=== PATIENT | female | born 1995 | race African-American/Black ===

== ENCOUNTER 2017-07-09 23:12 | Emergency (ER) | payer SELFPAY ==
[~2017-07-09] VITALS: Ht 170.2 cm; Wt 136.1 kg
--- OUTSIDE RECORDS SUMMARY | 2017-07-09 23:36 | External Medical Summary Rpt | CCD ---
Author Author [employer] Organization [employer] Address Unknown Phone Unavailable Purpose Continuity of Care Document - through 2016
--- OUTSIDE RECORDS SUMMARY | 2017-07-09 23:38 | External Medical Summary Rpt | CCD ---
Demographics Preferred Language Prydeinig Marital Status Unknown Catholic Affiliation Unknown Race Unknown Ethnic Group Unknown Author Author , JOSE L DOMINGO Address Unknown Phone jose Immunization Unable to retrieve immunization data due to connection failure with Immunization Registry. Please try again later.
--- OUTSIDE RECORDS SUMMARY | 2017-07-09 23:38 | External Medical Summary Rpt | CCD ---
Demographics Preferred Language Niuean Marital Status Unknown Taoism Affiliation Unknown Race Unknown Ethnic Group Unknown Author Author , JOSE L DOMINGO Address Unknown Phone jose Immunization Unable to retrieve immunization data due to connection failure with Immunization Registry. Please try again later.
--- NOTE | 2017-07-10 01:35 | Emergency Room Report ---
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 N Clinical Suspician of Infection? N Mental Status: 1 - Regular (Normal Baseline) Sepsis Risk:Low Sepsis Risk Have you (or family members/close friends) recently traveled outside the [place]? N If Yes, where/when: Have you had exposure to infectious disease within the past month? N TB? Other? Specify: Source patient, RN notes reviewed, family, old records Exam Limitations no limitations Comment pt with sob and cough with pleuritic pain Cardiac Chest Pain Chest pain indicative of cardiac No Timing/Duration this evening Severity moderate ALLERGIES Coded Allergies: NSAIDS (Non-Steroidal Anti-Inflamma (07/09/17) Sulfa (Sulfonamide Antibiotics) (07/09/17) codeine (07/09/17) latex (07/09/17) History Medical History General CAD? No Angina: No MD: No Hypertension? No Hyperlipidemia? No CHF? No DVT? No PE? No COPD? No Asthma? Yes Anemia? No GERD? No Gastric ulcers? Yes GI Bleed? Yes Hernia? No Thyroid Problems? No Hypothyroidism? No CVA? No Seizures? No Diabetes? No Renal Insuffiency? No End Stage Renal Disease? No UTI? Yes Stones? No BPH? No GB Disease: No Nephritic Syndrome? No Asplenia? No Hepatitis? No Sickle Cell Disease? No Arthritis? No Migraines? Yes Cataracts? No Glaucoma? No MRSA? No HIV? No TB? No Anxiety? Yes Depression? Yes Cancer? No More? 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 Respiratory see HPI, cough, shortness of breath, denies wheezing Cardiovascular denies chest pain, denies palpitations, denies syncope Gastrointestinal denies abdominal pain, denies diarrhea, denies vomiting Genitourinary denies: dysuria, frequency, hesitancy, hematuria. Musculoskeletal denies back pain, denies joint pain, denies joint swelling, denies neck pain Skin denies rash Psychiatric/Neurological denies headache, denies seizure Physical Exam Vital Signs Vital Signs Date Time Temp Pulse Resp B/P Pulse O2 O2 Flow FiO2 Ox Delivery Rate 07/10 0227 75 18 123/91 100 07/10 0157 16 07/10 0046 97.6 87 18 129/96 100 07/09 2315 98.2 89 20 121/56 100 - WBC >12,000 or <4,000 or 10% bands? 2 or more SIRS Criteria Met? B/P:123/91 MAP:77 Creatinine >2.0? UA output<0.5ml/kg/hr for 2 hrs? Platelet count >100,000? Lactate >2.0mmol/1? INR >1.2 or PTT > than 60 sec? Evidence of Organ Dysfunction? Provider documented clinical suspician of infection? N Sepsis Criteria Count: 1 Sepsis Risk: Low Sepsis Risk General Appearance no apparent distress Eye Exam - bilateral eye PERRL, bilateral eye EOMI Ear, Nose, Throat normal ENT inspection Neck supple Respiratory Status No: respiratory distress. Lung Sounds bilateral: lungs clear. Cardiovascular regular rate/rhythm, no murmur Peripheral Pulses Pulses normal Yes Back normal inspection Extremities normal inspection, no calf tenderness Strength 4 Upper Ext (L), 4 Upper Ext (R), 4 Lower Ext (L), 4 Lower Ext (R) Neurologic alert, claim service representative II-XII nml as tested, no motor/sensory deficits Reflexes Reflexes normal No Mental status normal mood/affect Skin no rash cons.w/shingles Medical Decision Making LABS/Meds/Orders Pt receiving controlled substance in ED? No Results/Orders Laboratory Tests 07/10/17 0145: Sodium 138, Potassium 3.9, Chloride 102, Carbon Dioxide 25, BUN 10, Creatinine 0.6, Estimated Creat Clear 316 H, Estimated GFR (MDRD) 125, Glucose 104, Calcium 9.2, Total Bilirubin 0.2, AST 15, ALT 17, Alkaline Phosphatase 97, Creatine Kinase 102, CK-MB (CK-2) Rel Index 0.5, CK and CKMB Interp < 0.5, Troponin I < 0.02, Total Protein 8.8 H, Albumin 3.6, Globulin 5.2 H, Albumin/ Globulin Ratio 0.7 L, D-Dimer 989 *H, WBC 11.7 H, RBC 5.06, Hgb 10.0 L, Hct 34.2 L, MCV 67.6 L, RDW 17.3, Plt Count 335, MPV 8.6, Gran % 64.0, Gran # 7.5, Lymphocytes % 31.0, Monocytes % 3.4, Eosinophils % 1.2, Basophils % 0.4, Lymphocytes # 3.6, Monocytes # 0.4, Eosinophils # 0.1, Basophils # 0.1, PUBS MCHC 29.3 L, MCH 19.8 L Current Medication Orders Sig/Jacki Start time Last Medication Dose Route Stop Time Status Admin Iopamidol 75 ML ONCE ONE 07/10 445 UNV 07/10 IV 07/10 446 0436 Sodium Chloride 10 ML PRN PRN 07/10 445 UNV 07/10 IV 07/10 605 0436 Diphenhydramine HCl 25 MG ONCE ONE 07/10 400 DC 07/10 IV 07/10 401 0355 Methylprednisolone 125 MG ONCE ONE 07/10 400 DC 07/10 Sodium Succinate IV 07/10 401 0356 Diphenhydramine HCl 0 .STK-MED ONE 07/10 354 DC .ROUTE Methylprednisolone 0 .STK-MED ONE 07/10 354 DC Sodium Succinate .ROUTE Ceftriaxone Sodium 0 .STK-MED ONE 07/10 152 DC .ROUTE Sodium Chloride 50 ML .STK-MED ONE 07/10 152 DC IV Morphine Sulfate 0 .STK-MED ONE 07/10 151 DCr .ROUTE Ceftriaxone Sodium 1 GM ONCE ONE 07/10 145 DC 07/10 Sodium Chloride 50 ML IV 07/10 214 0158 Morphine Sulfate 4 MG ONCE ONE 07/10 145 DCr 07/10 IV 07/10 014 0157 Ondansetron HCl 4 MG ONCE ONE 07/10 115 DC 07/10 IV 07/10 116 0106 Ondansetron HCl 0 .STK-MED ONE 07/10 107 DC .ROUTE Albuterol/Ipratropium 0 .STK-MED ONE 07/09 2322 DC INH Orders Procedure Date/time Status DIET-NOTHING BY MOUTH 07/10 B Active CTA-CHEST 07/[address] SCAN REQ 07/10 0300 Active D-DIMER 07/10 136 Complete COMPLETE METABOLIC PANEL 07/10 136 Complete CBC WITH AUTO DIFF 07/10 136 Complete CARDIAC ENZYMES 07/10 136 Complete RT REQUEST ALBUTEROL NEB 07/09 2314 Active CHEST(2 VIEWS-NOT PORTABLE) 07/09 2314 Active XRAY/CT/US XRAY/CT/US 1 XRAY chest XR interpretation by reviewed by me Xray Results normal/NAD XRAY/CT/US [address] interpretation by discussed w/radiologist Time results known: 509 CT Results normal/NAD Departure Departure Time of Disposition 05 Disposition DC Home or Self Care(routine) Clinical Impression Primary Impression: Bronchitis Secondary Impressions: Pleurisy Condition STABLE Patient Instructions DI for Pleurisy Additional Instructions use meds and see your pcp for follow up Discharge Counseling Counseled pt/family regarding diagnosis, test results, medications/RX, follow up needs Prescriptions Current Visit Scripts Azithromycin (Zithromycin (Z-JUDE) 250MG Tab) 250 MG PO DAILY #6 TAB TAKE TWO (2) TABLETS ON DAY 1, THEN ONE (1) TABLET DAY #2 THRU #5 Prednisone (Prednisone 20MG) 20 MG PO BID #10 TAB ED Critical Care Critical Care No at 0518
[2017-07-10 01:51] LABS: LYMPH # 3.6 K/mm3 (0.7-4.5)
[2017-07-10 02:16] LABS: BUN 10 mg/dL (7-18)
[2017-07-10 02:29] LABS: GFR (ESTIMATED) 125 ML/MIN (59-)
[2017-07-10] MEDS ORDERED: PREDNISONE 20MG20 MG PO (05:18)
[2017-07-10] MEDS ORDERED: ZITHROMAX Z PA250 MG PO (05:18)
[2017-07-10 05:44] VITALS: BP 118/76
--- NOTE | 2017-07-10 20:23 | RADIOLOGY REPORT PS360 ---
CTA-CHEST HISTORY: ELEVATED D-DIMER Patient Age: 21 years: Female Ordering Physician: Imelda Garcia MD TECHNIQUE: Helical CT scanning performed through the chest following 60 cc Isovue-370 followed x 14 mL normal saline. Thickened Axial reconstructions performed as well as thick slab volumemipp Sagittal and coronal. CTA processing on independent workstation COMPARISON :Chest CXR film from earlier today FINDINGS Large patient degrades the images somewhat No evidence of pulmonary embolism . Good opacification of pulmonary arteries . There is contrast within the aorta & it appears satisfactory with no aneurysm or dissection. Heart upper normal size to slightly generous for age.. . Borderline cardiomegaly. No pericardial effusion. No mediastinal mass or adenopathy. Residual fibrous anterior mediastinum upper chest. No hilar adenopathy or mass. Airways appear satisfactory. Lung barrett. No focal pneumonia. No infiltrate. No nodules or masses. No pleural effusion. Uppermost abdomen unremarkable. IMPRESSION: No evidence of pulmonary embolism.. No significant findings. No Acute findings in the chest Borderline cardiomegaly.
--- NOTE | 2017-07-13 08:10 | RADIOLOGY REPORT PS360 ---
CHEST(2 VIEWS-NOT PORTABLE) HISTORY: ASTHMA short of breath Patient Age: 21 years: Female Ordering Physician: Imelda Garcia MD TECHNIQUE: 2 view chest PA lateral COMPARISON :CTA chest from 07/10/2017 FINDINGS Subsequent day the chest film reveals lungs to be clear with no active disease. No pneumothorax no pleural effusion. Heart yolanda and mediastinal structures appear satisfactory. IMPRESSION: Negative chest.. No active disease
== END 2017-07-10 05:45 | disposition home or self-care (01) ==
LOC: ER 23:12
PROVIDERS: Emergency Medicine
DX: J20.9 Acute bronchitis, unspecified (principal); R09.1 Pleurisy; Z88.2 Allergy status to sulfonamides; Z88.6 Allergy status to analgesic agent; J45.909 Unspecified asthma, uncomplicated; K50.90 Crohn's disease, unspecified, without complications
CPT/HCPCS: J2405; Q9967

== ENCOUNTER 2017-07-31 18:19 | Emergency (ER) | payer SELFPAY ==
[~2017-07-31] VITALS: Ht 170.2 cm; Wt 158.8 kg
[~2017-07-31 18:19] MED LIST: PREDNISONE 20MG20 MG PO; ZITHROMAX Z PA250 MG PO
--- OUTSIDE RECORDS SUMMARY | 2017-07-31 18:23 | External Medical Summary Rpt | CCD ---
Demographics Preferred Language Hungarian Marital Status Unknown Jehovah'S Witness Affiliation Unknown Race Unknown Ethnic Group Unknown Author Author , JOSE L DOMINGO Address Unknown Phone jose Immunization No patient found.
--- OUTSIDE RECORDS SUMMARY | 2017-07-31 18:23 | External Medical Summary Rpt | CCD ---
Demographics Preferred Language Mongolian Marital Status Unknown Yazidi Affiliation Unknown Race Unknown Ethnic Group Unknown Author Author , JOSE L DOMINGO Address Unknown Phone jose Immunization No patient found.
--- OUTSIDE RECORDS SUMMARY | 2017-07-31 18:23 | External Medical Summary Rpt ---
Author Author GUSEMIL Danilo, [employer]SE L [employer] Organization [employer] Address Unknown Phone Unavailable Results Fibrin D-dimer FEU [Mass/volume] in Platelet poor plasma Observa Value Referen Units Interpr Notes Date tion ce etation Range Fibrin 0 - 400 ng/mL High Jul 10 D-dimer alert NOTIFICAT 2017 1:45 FEU ION AM [Mass/vol RESULT ume] in The Platelet D-Dimer poor values plasma are presented in units of mass(ng/m L) ofD-Dimer units(DDU ).This test has been FDA approved as an aid in the assessmen tand evaluatio n of suspected DIC, and thromboem bolic eventsinc luding PE and DVT. However, it does not have approvalf or cut-off values for the exclusion of these condition s. CBC W Auto Differential panel in Blood Observa Value Referen Units Interpr Notes Date tion ce etation Range Basophils 0 - 0.2 K/MM3 Normal No Jul 10 inform2016 1:45 [#/volume on in AM ] in source Blood by data Automated count Basophils 0.1 - 2.0 % Normal No Jul 10 informati 2016 1:45 leukocyte on in AM s in source Blood by data Automated count Eosinophi 0.0 - 0.4 K/mm3 Normal No Jul 10 ls informati 2016 1:45 [#/volume on in AM ] in source Blood by data Automated count Eosinophi 0.1 - % Normal No Jul 10 ls/100 12.0 informati 2016 1:45 leukocyte on in AM s in source Blood by data Automated count Granulocy 1.8 - 7.8 K/mm3 Normal No Jul 10 erma informati 2016 1:45 [#/volume on in AM ] in source Blood by data Automated count Granulocy 37.0 - % Normal No Jul 10 rema/100 80.0 informati 2016 1:45 leukocyte on in AM s in source Blood by data Automated count Hematocri 37.0 - % Low No Jul 10 t [Volume 47.0 informati 2017 1:45 on in AM Fraction] source of Blood data Hemoglobi 12.2 - g/dL Low No Jul 5 n 16.2 informati 2017 1:45 [Mass/vol on in AM ume] in source Blood data Lymphocyt 0.7 - 4.5 K/mm3 Normal No Jul 5 es informati 2017 1:45 [#/volume on in AM ] in source Unspecifi data ed specimen by Automated count Lymphocyt 10 - 50.0 % Normal No Jul 5 es informati 2016 1:45 [#/volume on in AM ] in source Unspecifi data ed specimen by Automated count Erythrocy 27 - 31.2 pg Low No Jul 5 te mean informati 2017 1:45 corpuscul on in AM ar source hemoglobi data n [Entitic mass] Erythrocy 31.8 - g/dl Low No Jul 5 te mean 35.4 informati 2017 1:45 corpuscul on in AM ar source hemoglobi data n concentra tion [Mass/vol ume] by Automated count Erythrocy 82.2 - fl Low No Jul 5 te mean 97.8 informati 2016 1:45 corpuscul on in AM ar volume source [Entitic data volume] by Automated count Monocytes 0.1 - 1.0 K/mm3 Normal No Jul 5 informati 2017 1:45 [#/volume on in AM ] in source Blood by data Automated count Monocytes 1.7 - 9.3 % Normal No Jul 5 /100 informati 2017 1:45 leukocyte on in AM s in source Blood by data Automated count Platelet 7.4 - fl Normal No Jul 5 mean 10.4 informati 2017 1:45 volume on in AM [Entitic source volume] data in Blood by Automated count Platelets 142 - 424 K/mm3 Normal No Jul 5 informati 2017 1:45 [#/volume on in AM ] in source Blood data Erythrocy 4.2 - 5.4 M/mm3 Normal No Jul 5 erma informati 2017 1:45 [#/volume on in AM ] in source Amniotic data fluid Erythrocy 11.5 - % Normal No Jul 5 te 17.5 informati 2017 1:45 distribut on in AM ion width source [Entitic data volume] by Automated count Leukocyte 4.8 - K/MM3 High No Jul 5 s 10.8 informati 2016 1:45 [#/volume on in AM ] in source Blood data
--- OUTSIDE RECORDS SUMMARY | 2017-07-31 18:23 | External Medical Summary Rpt ---
Author Author GUSEMIL Danilo, JOSE L [employer] Organization [employer] Address Unknown Phone [...] 37.0 - % Normal No Jul 10 erma/100 80.0 informati 2016 1:45 leukocyte on in [...]
--- OUTSIDE RECORDS SUMMARY | 2017-07-31 18:23 | External Medical Summary Rpt | CCD ---
Author Author , JOSE L DOMINGO Address Unknown Phone [email or web address] Purpose Continuity of Care Document - 07-10-2017 through 2016 Problems Code Diagnosis DOS Provider Status J40 BRONCHITIS, NOT SPECIFIED ACUTE OR CHRONIC R09.1 PLEURISY Results Labs Lab Lab Date Result Refere Interp Status Commen Order Detail nces retati t Range on CBC w auto diff (07-10-2017 01:45) Automat = 0.1 0-0.2 complet ed 017 K/MM3 ed blood 01:45 basophi l count (count/ vo Baso % = 0.4 % 0.1-2.0 complet 017 ed 01:45 Automat = 0.1 0.0-0.4 complet ed 017 K/mm3 ed blood 01:45 eosinop hil count Automat = 1.2 % 0.1-12. complet ed 017 0 ed blood 01:45 eosinop hils/10 0 leukocy t Blood = 7.5 1.8-7.8 complet granulo 017 K/mm3 ed cytes 01:45 automat ed count (numb Granulo = 64.0 37.0-80 complet cyte 017 % .0 ed percent 01:45 age Blood = 34.2 37.0-47 complet hematoc 017 % .0 ed rit 01:45 (volume fractio n) Blood = 10.0 12.2-16 complet hemoglo 017 g/dL .2 ed bin 01:45 measure ment (mass/v olum Absolut = 3.6 0.7-4.5 complet e 017 K/mm3 ed lymphoc 01:45 yte count Lymphoc = 31.0 10-50.0 complet yte 017 % ed count, 01:45 blood, automat ed Mean = 19.8 27-31.2 complet corpusc 017 pg ed ular 01:45 hemoglo bin (MCH) determ Automat = 29.3 31.8-35 complet ed 017 g/dl .4 ed erythro 01:45 cyte mean corpusc ular h Automat = 67.6 82.2-97 complet ed 017 fl .8 ed erythro 01:45 cyte mean corpusc ular v Absolut = 0.4 0.1-1.0 complet e 017 K/mm3 ed monocyt 01:45 e count Walton % = 3.4 % 1.7-9.3 complet 017 ed 01:45 Automat = 8.6 7.4-10. complet ed 017 fl 4 ed blood 01:45 platele t mean volume gianluca Blood = 335 142-424 complet platele 017 K/mm3 ed t count 01:45 Red = 5.06 4.2-5.4 complet blood 017 M/mm3 ed cell 01:45 count Automat = 17.3 11.5-17 complet ed 017 % .5 ed erythro 01:45 cyte distrib ution width Blood = 11.7 4.8-10. complet leukocy 017 K/MM3 8 ed erma 01:45 count (number /volume ) D-dimer (07-10-2017 01:45) D-dimer = 989 0-400 complet 017 ng/mL ed 01:45 Comment: NOTIFICATION RESULT Comment: The D-Dimer values are presented in units of mass(ng/mL) of Comment: D-Dimer units(DDU). Comment: Comment: This test has been FDA approved as an aid in the assessment Comment: and evaluation of suspected DIC, and thromboembolic events Comment: including PE and DVT. However, it does not have approval Comment: for cut-off values for the exclusion of these conditions. Cardiac enzymes (07-10-2017 01:45) Serum = 0.5 0-4.0 complet or 017 U/L ed plasma 01:45 creatin e kinase MB (CK-M Serum < 0.5 0.0-3.6 complet or 017 ng/mL ed plasma 01:45 creatin e kinase MB measu Serum = 102 26-192 complet or 017 U/L ed plasma 01:45 creatin e kinase measure m Serum < 0.02 0.00-0. complet or 017 ng/mL 06 ed plasma 01:45 troponi n i.cardi ac measu Comprehensive metabolic panel (07-10-2017 01:45) Serum = 0.7 1.1-1.8 complet or 017 ed plasma 01:45 albumin /globul in mass ra Serum = 3.6 3.4-5.0 complet or 017 gm/dL ed plasma 01:45 albumin measure ment (mas Serum = 97 46-116 complet or 017 U/L ed plasma 01:45 alkalin e phospha tase gianluca Serum = 0.2 0.2-1.0 complet or 017 mg/dL ed plasma 01:45 total bilirub in measure m Serum = 10 7-18 complet or 017 mg/dL ed plasma 01:45 urea nitroge n measure men Serum = 9.2 8.5-10. complet or 017 mg/dL 1 ed plasma 01:45 calcium measure ment (mas Serum = 102 98-107 complet or 017 mmoL/L ed plasma 01:45 chlorid e measure ment (mo Carbon = 25 21.0-32 complet dioxide 017 mmoL/L .0 ed 01:45 measure ment Serum = 0.6 0.55-1. complet or 017 mg/dL 02 ed plasma 01:45 creatin ine measure ment ( Estimat = 316 50-200 complet ion of 017 ML/MIN ed creatin 01:45 ine renal clearan ce Estimat = 125 59- complet ed 017 ML/MIN ed glomeru 01:45 lar filtrat ion rate (GF Comment: REFERENCE RANGE: >60 ML/MIN/1.73 SQUARE METERS Comment: If this patient is -Nigerien, then multiply the Comment: result by 1.210. Serum = 5.2 1.3-3.2 complet globuli 017 gm/dL ed n 01:45 measure ment (mass/v olume) Serum = 104 74-106 complet or 017 mg/dL ed plasma 01:45 glucose measure ment (mas Serum = 3.9 3.5-5.1 complet potassi 017 mmoL/L ed um 01:45 measure ment Serum = 138 136-145 complet sodium 017 mmoL/L ed measure 01:45 ment Serum = 15 15-37 complet or 017 U/L ed plasma 01:45 asparta te aminotr ansfera ALT = 17 12-78 complet (SGPT) 017 U/L ed ser/georgina 01:45 s Protein = 8.8 6.4-8.2 complet total 017 gm/dL ed ser/georgina 01:45 s
--- OUTSIDE RECORDS SUMMARY | 2017-07-31 18:23 | External Medical Summary Rpt | CCD ---
Author Author , JOSE L DOMINGO Address Unknown Phone [email or web address] Purpose Continuity of Care Document - 07-10-2017 [...] 017 K/mm3 ed monocyt 01:45 e count [place] % = 3.4 % 1.7-9.3 complet 017 [...] SQUARE METERS Comment: If this patient is -Mozambican, then multiply the Comment: result by 1.210. [...]
--- NOTE | 2017-07-31 19:16 | Urgent Treatment Center Report ---
History of Present Issue Date/Time Seen by Provider 07/31/171914 Visit Reason Pt arrived:Walked Presenting Problem:PT STATES SHE IS HAVING FACIAL PAIN IN BOTH JAWS. PT HAS A HX OF ABSCESSES Location if Accident: Onset of symptoms date/time:/ or onset unknown for:MEDICAL HX UNKNOWN Have you (or family members/close friends) recently traveled outside the [place]? N If Yes, where/when: Have you had exposure to infectious disease within the past month? TB? Other? Specify: c/o dental pain. report fractured tooth right lower side. Can't remember how long it has been that way. Due to insurance, hasn't found a dentist to accept it despite calling around. Reports intermittent abscesses on the gum area by this particular tooth. States they come up as red swollen painful pus filled and without treatment, they resolved within a few days. Last time approx 2 weeks ago. Since last time, pain throughout all bottom teeth although swelling and redness resolved. Ibuprofen helps with pain. Listed as an allergy. Adament she is allergic and it causes hives but that is all that she had so she has been taking it. Denies hives. Hasn't taken it x4days. Mom gave her unknown topical medication but not helping. No fever, aches, chills. Source patient Exam Limitations no limitations ALLERGIES Coded Allergies: NSAIDS (Non-Steroidal Anti-Inflamma (07/09/17) Sulfa (Sulfonamide Antibiotics) (07/09/17) acetaminophen (07/31/17) codeine (07/09/17) latex (07/09/17) History Medical History General CAD? No Angina: No DC: No Hypertension? No Hyperlipidemia? No CHF? No DVT? No PE? No COPD? No Asthma? Yes Anemia? No GERD? No Gastric ulcers? Yes GI Bleed? Yes Hernia? No Thyroid Problems? No Hypothyroidism? No CVA? No Seizures? No Diabetes? No Renal Insuffiency? No UTI? Yes Stones? No BPH? No GB Disease: No Nephritic Syndrome? No Asplenia? No Hepatitis? No Sickle Cell Disease? No Arthritis? No Migraines? Yes Cataracts? No Glaucoma? No MRSA? No HIV? No TB? No Anxiety? Yes Depression? Yes Cancer? No More? Yes Additional hx: CHROHNS DISEASE Immunization HX Ped.Immunizations UTD No DT/Tetanus 5-10 Years Ago Surgical Hx Previous Surgery?Y EYE SX 12 Social History Smoking Hx Smoker: Never Smoker Tobacco: No Alcohol Alcohol: No Review of Systems All Other Systems Reviewed and Negative Constitutional see HPI Eyes denies drainage, denies inflammation, denies pain ENT see HPI. denies: ear pain, nose pain, mouth swelling, tongue swelling, throat pain. Respiratory denies shortness of breath Gastrointestinal denies no symptoms reported Musculoskeletal denies joint pain Skin denies change in color, denies lesions, denies lumps Psychiatric/Neurological denies headache, denies other (dizziness) Physical Exam Vital Signs Vital Signs Date Time Temp Pulse Resp B/P Pulse O2 O2 Flow FiO2 Ox Delivery Rate 07/31 2043 97.9 99 20 137/82 99 07/31 1857 97.9 99 20 137/82 99 General Appearance no apparent distress, obese Eye Exam - bilateral eye normal exam Ear, Nose, Throat sarika auricles, EACs and TMs unremarkable, no pain w/ exam, normal nares, normal pharynx and tongue, right lower 1st molar w/ decay, even w/ gumline, gum TTP but no sign of erythema or swelling, tenderness throughout entire lower gumline, mild maxillary tenderness but no ethmoid or frontal tenderness; no swelling, normal facial exam Neck normal inspection, non-tender, supple, full range of motion Respiratory Status No: respiratory distress, productive cough, non productive cough. Cardiovascular no peripheral edema Neurologic alert, oriented x 3 Skin intact, normal color, warm/dry Lymphatic no adenopathy Medical Decision Making LABS/Meds/Orders Pt receiving controlled substance in ED? No Results/Orders Current Medication Orders Sig/Jacki Start time Last Medication Dose Route Stop Time Status Admin Lidocaine HCl 0 .STK-MED ONE 07/31 2057 DC .ROUTE Ceftriaxone Sodium 1 GM ONCE ONE 07/31 2000 DC 07/31 IM 07/31 Lidocaine HCl 0 ONCE ONE 07/31 2000 DC IM 07/31 2001 Ceftriaxone Sodium 0 .STK-MED ONE 07/31 1958 DC .ROUTE Departure Departure Time of Disposition 2032 Disposition DC Home or Self Care(routine) Clinical Impression Primary Impression: Pain, dental Secondary Impressions: Dental caries Condition STABLE Referrals CEBALLOS,LAYO Call first thing in the morning. Tell them you were in [facility] today. Have dental decay to the gumline. Lots of pain x weeks. No current abscess. Given rocephin and started on antibiotic but need follow up appointment. Patient Instructions DI for Dental Pain, DI for Tooth Decay Additional Instructions Start antibiotic(s) tomorrow because you had rocephin injection in clinic and be sure to take as ordered for the FULL length of time although you should start to see improvement over the next 24-48 hours. *Follow up with dentist immediately. A dental abscess/infection can become VERY serious quickly. Discharge Counseling Counseled pt/family regarding diagnosis, medications/RX, home care, follow up needs Prescriptions Current Visit Scripts AMOXICILLIN (Amoxicillin 875MG Tab) 875 MG PO BID #20 TAB at 3026
[2017-07-31] MEDS ORDERED: AMOXICILLIN875 MG PO (20:40)
[2017-07-31 20:43] VITALS: BP 137/82
== END 2017-07-31 20:44 | disposition home or self-care (01) ==
LOC: UTC 18:19
DX: K02.9 Dental caries, unspecified (principal); J45.909 Unspecified asthma, uncomplicated; F41.8 Other specified anxiety disorders

== ENCOUNTER 2017-08-09 03:46 | Emergency (ER) | payer SELFPAY ==
[~2017-08-09] VITALS: Ht 170.2 cm; Wt 136.1 kg
[~2017-08-09 03:46] MED LIST changes: +AMOXICILLIN875 MG PO
--- OUTSIDE RECORDS SUMMARY | 2017-08-09 04:42 | External Medical Summary Rpt | CCD ---
Author Author , JOSE L DOMINGO Address Unknown Phone [email or web address] Purpose Continuity of Care Document - 07-10-2017 [...] 017 K/mm3 ed monocyt 01:45 e count [place] % = 3.4 % 1.7-9.3 complet 017 [...] SQUARE METERS Comment: If this patient is -Tongan, then multiply the Comment: result by 1.210. [...]
--- OUTSIDE RECORDS SUMMARY | 2017-08-09 04:42 | External Medical Summary Rpt | CCD ---
Author Author , JOSE L DOMINGO Address Unknown Phone [email or web address] Purpose Continuity of Care Document - 07-10-2017 [...] 017 K/mm3 ed monocyt 01:45 e count [place] % = 3.4 % 1.7-9.3 complet 017 [...] SQUARE METERS Comment: If this patient is -Samoan, then multiply the Comment: result by 1.210. [...]
--- OUTSIDE RECORDS SUMMARY | 2017-08-09 04:43 | External Medical Summary Rpt ---
Author Author JOSE L Carrasco, [employer] Organization [employer] Address Unknown Phone [...] - 2.0 % Normal No Jul 10 /100 informati 2016 1:45 leukocyte on in AM [...] count Hematocri 37.0 - % Low No Nov 5 t [Volume 47.0 informati 2017 1:45 on [...] % Normal No Jul 5 es informati 2017 [...] No Jul 5 te mean 97.8 informati 2017 1:45 corpuscul on in AM ar volume [...] Platelets 142 - 424 K/mm3 Normal No Nov 5 informati 2017 1:45 [#/volume on in [...] count Leukocyte 4.8 - K/MM3 High No Nov 5 s 10.8 informati 2016 1:45 [#/volume on in AM ] in source Blood data
--- OUTSIDE RECORDS SUMMARY | 2017-08-09 04:43 | External Medical Summary Rpt | CCD ---
Demographics Preferred Language Korean Marital Status Unknown Mosque Affiliation Unknown Race Unknown Ethnic Group Unknown Author Author , JOSE L DOMINGO Address Unknown Phone jose Immunization No patient found.
--- OUTSIDE RECORDS SUMMARY | 2017-08-09 04:43 | External Medical Summary Rpt | CCD ---
Demographics Preferred Language Belarusian Marital Status Unknown Rastafari Affiliation Unknown Race Unknown Ethnic Group Unknown Author Author , JOSE L DOMINGO Address Unknown Phone jose Immunization No patient found.
--- NOTE | 2017-08-09 05:25 | Emergency Room Report ---
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 N Clinical Suspician of Infection? N Mental Status: 1 - Regular (Normal Baseline) Sepsis Risk:Possible Sepsis Risk Have you (or family members/close friends) recently traveled outside the [place]? N If Yes, where/when: Have you had exposure to infectious disease within the past month? N TB? Other? Specify: Source patient, RN notes reviewed, old records Exam Limitations no limitations Comment pt with persistant facial pain and has not been able to see dentist sec to [place] issues Cardiac Chest Pain Chest pain indicative of cardiac No Timing/Duration this evening Severity moderate ALLERGIES Coded Allergies: NSAIDS (Non-Steroidal Anti-Inflamma (07/09/17) Sulfa (Sulfonamide Antibiotics) (07/09/17) acetaminophen (07/31/17) codeine (07/09/17) latex (07/09/17) Home Medications Active Scripts AMOXICILLIN (Amoxicillin 875MG Tab) 875 MG PO BID #20 TAB Prov: 07/31/17 History Medical History General CAD? No Angina: No SC: No Hypertension? No Hyperlipidemia? No CHF? No DVT? No PE? No COPD? No Asthma? Yes Anemia? No GERD? No Gastric ulcers? Yes GI Bleed? Yes Hernia? No Thyroid Problems? No Hypothyroidism? No CVA? No Seizures? No Diabetes? No Renal Insuffiency? No End Stage Renal Disease? No UTI? Yes Stones? No BPH? No GB Disease: No Nephritic Syndrome? No Asplenia? No Hepatitis? No Sickle Cell Disease? No Arthritis? No Migraines? Yes Cataracts? No Glaucoma? No MRSA? No HIV? No TB? No Anxiety? Yes Depression? Yes Cancer? No More? 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 denies: ear pain, epistaxis, throat pain, throat swelling. Respiratory denies cough Cardiovascular denies palpitations Gastrointestinal denies diarrhea, denies vomiting Genitourinary denies: frequency, hesitancy. Musculoskeletal denies back pain, denies joint pain, denies joint swelling, denies neck pain Skin denies rash Psychiatric/Neurological denies headache, denies seizure Physical Exam Vital Signs Vital Signs Date Time Temp Pulse Resp B/P Pulse O2 O2 Flow FiO2 Ox Delivery Rate 08/09 0353 98.8 98 20 139/88 94 - WBC >12,000 or <4,000 or 10% bands? 2 or more SIRS Criteria Met? B/P:139/88 MAP:105 Creatinine >2.0? UA output<0.5ml/kg/hr for 2 hrs? Platelet count >100,000? Lactate >2.0mmol/1? INR >1.2 or PTT > than 60 sec? Evidence of Organ Dysfunction? Provider documented clinical suspician of infection? N Sepsis Criteria Count: 2 Sepsis Risk: Possible Sepsis Risk General Appearance no apparent distress Eye Exam - bilateral eye PERRL, bilateral eye EOMI Ear, Nose, Throat gingival disease, no abscess and no facial swelling Neck supple Respiratory Status No: respiratory distress. 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 No Departure Departure Time of Disposition 0523 Disposition DC Home or Self Care(routine) Clinical Impression Primary Impression: Facial pain Condition STABLE Patient Instructions DI for Dental Pain Additional Instructions advil/tyenol and see pcp for follow up ED Critical Care Critical Care No at 0524
--- NOTE | 2017-08-09 05:25 | Emergency Room Report ---
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 N Clinical Suspician of Infection? N Mental Status: 1 - Regular (Normal Baseline) Sepsis Risk:Possible Sepsis Risk Have you (or family members/close friends) recently traveled outside the [place]? N If Yes, where/when: Have you had exposure to infectious disease within the past month? N TB? Other? Specify: Source patient, RN notes reviewed, old records Exam Limitations no limitations Comment pt with persistant facial pain and has not been able to see dentist sec to [place] issues Cardiac Chest Pain Chest pain indicative of cardiac No Timing/Duration this evening Severity moderate ALLERGIES Coded Allergies: NSAIDS (Non-Steroidal Anti-Inflamma (07/09/17) Sulfa (Sulfonamide Antibiotics) (07/09/17) acetaminophen (07/31/17) codeine (07/09/17) latex (07/09/17) Home Medications Active Scripts AMOXICILLIN (Amoxicillin 875MG Tab) 875 MG PO BID #20 TAB Prov: 07/31/17 History Medical History General CAD? No Angina: No NM: No Hypertension? No Hyperlipidemia? No CHF? No DVT? No PE? No COPD? No Asthma? Yes Anemia? No GERD? No Gastric ulcers? Yes GI Bleed? Yes Hernia? No Thyroid Problems? No Hypothyroidism? No CVA? No Seizures? No Diabetes? No Renal Insuffiency? No End Stage Renal Disease? No UTI? Yes Stones? No BPH? No GB Disease: No Nephritic Syndrome? No Asplenia? No Hepatitis? No Sickle Cell Disease? No Arthritis? No Migraines? Yes Cataracts? No Glaucoma? No MRSA? No HIV? No TB? No Anxiety? Yes Depression? Yes Cancer? No More? 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 denies: ear pain, epistaxis, throat pain, throat swelling. Respiratory denies cough Cardiovascular denies palpitations Gastrointestinal denies diarrhea, denies vomiting Genitourinary denies: frequency, hesitancy. Musculoskeletal denies back pain, denies joint pain, denies joint swelling, denies neck pain Skin denies rash Psychiatric/Neurological denies headache, denies seizure Physical Exam Vital Signs Vital Signs Date Time Temp Pulse Resp B/P Pulse O2 O2 Flow FiO2 Ox Delivery Rate 08/09 0353 98.8 98 20 139/88 94 - WBC >12,000 or <4,000 or 10% bands? 2 or more SIRS Criteria Met? B/P:139/88 MAP:105 Creatinine >2.0? UA output<0.5ml/kg/hr for 2 hrs? Platelet count >100,000? Lactate >2.0mmol/1? INR >1.2 or PTT > than 60 sec? Evidence of Organ Dysfunction? Provider documented clinical suspician of infection? N Sepsis Criteria Count: 2 Sepsis Risk: Possible Sepsis Risk General Appearance no apparent distress Eye Exam - bilateral eye PERRL, bilateral eye EOMI Ear, Nose, Throat gingival disease, no abscess and no facial swelling Neck supple Respiratory Status No: respiratory distress. 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 No Departure Departure Time of Disposition 0523 Disposition DC Home or Self Care(routine) Clinical Impression Primary Impression: Facial pain Condition STABLE Patient Instructions DI for Dental Pain Additional Instructions advil/tyenol and see pcp for follow up ED Critical Care Critical Care No at 0524
[2017-08-09 05:34] VITALS: BP 139/88
== END 2017-08-09 05:35 | disposition home or self-care (01) ==
LOC: ER 03:46
DX: G50.1 Atypical facial pain (principal); J45.909 Unspecified asthma, uncomplicated; K50.90 Crohn's disease, unspecified, without complications; F17.210 Nicotine dependence, cigarettes, uncomplicated; Z88.2 Allergy status to sulfonamides; Z88.6 Allergy status to analgesic agent; Z91.040 Latex allergy status